=== PATIENT | male | born 1990 | race Caucasian/White ===

== ENCOUNTER → 2016-12-31 16:17 | Emergency (ER) | payer SELFPAY ==
[~2016-12-31] VITALS: Ht 180.3 cm; Wt 154.2 kg
[2016-12-31 16:21] VITALS: BP 148/99
== END | disposition left against medical advice (07) ==
LOC: EME 16:17
DX: M54.9 Dorsalgia, unspecified (principal); Z53.21 Procedure and treatment not carried out due to patient leaving prior to being seen by health care provider